=== PATIENT | male | born 1955 | race Caucasian/White ===

== ENCOUNTER 2020-12-04 09:31 | Inpatient (IN) ==
--- NOTE | 2020-11-23 13:31 | PAT Medication Instructions ---
Medication Instructions Date of Service November 23, 2020 Home Medications Medication Instructions Recorded lisinopril 40 mg tablet 40 mg PO BID #180 tab 06/11/20 terazosin 1 mg capsule 1 mg PO HS #90 cap 06/11/20 aspirin 81 mg tablet,delayed release 81 mg PO QAM coenzyme Q10 200 mg capsule 400 mg PO DAILY multivitamin 1 ea PO DAILY potassium 99 mg tablet 198 mg PO HS lisinopril 40 mg tablet 40 mg PO BID terazosin 1 mg capsule 1 mg PO HS Antiva 1 tab PO BID amlodipine 10 mg PO HS cyanocobalamin (vitamin B-12) [Vitamin B-12] 1,000 mcg PO DAILY magnesium 250 mg PO HS sodium hyaluronate [Hyaluronic Acid (sodium)] 20 mg PO QAM ASK your prescriber and surgeon aspirin 81 mg tablet,delayed release 81 mg PO QAM STOP taking 2 weeks before surgery (or as soon as possible if surgery is within 2 weeks) coenzyme Q10 200 mg capsule 400 mg PO DAILY Antiiva 1 tab PO BID sodium hyaluronate [Hyaluronic Acid (sodium)] 20 mg PO QAM DO NOT take the morning of surgery multivitamin 1 ea PO DAILY lisinopril 40 mg tablet 40 mg PO BID cyanocobalamin (vitamin B-12) [Vitamin B-12] 1,000 mcg PO DAILY Take evening before surgery potassium 99 mg tablet 198 mg PO HS lisinopril 40 mg tablet 40 mg PO BID terazosin 1 mg capsule 1 mg PO HS amlodipine 10 mg PO HS magnesium 250 mg PO HS Other Notes If you have any questions please call us at [phone] or [phone] or [phone] or [phone]
--- NOTE | 2020-11-27 08:35 | Anesthesiology Consultation ---
Date of Service November 27, 2020 Assessment & Plan (1) Encounter for pre-operative examination: Chart Review Chart Review: Acceptable Risk for Surgery (pending preop Covid testing ) and Patient seen in Pre Admission Testing Pt's preop CXR showing mild bibasilar interstitial thickening and opacity- slightly improved from previous CT scan- favors resolving infectious process. Pt was treated with abx and steroids 10/20/20 for possible pneumonia- has been feel ing better- mild residual LAURA- discussed with Dr. North- no significant issues noted on PE- pt should be re-evaluated DOS to ensure no concerning exam findings or symptoms. Pt was also instructed to call if symptoms do not continue to improve or get worse. -Pt states if he does not take his Antiiva prostate supplement- he cannot urinate. Discussed with Dr. North- pt able to continue supplement but instructed not to take AM of surgery. Per PAT appt on 11/23/20, pt resides in [facility]. Travels to [facility] for medical appts. Uses PPE. No known Covid positive contacts or Covid related symptoms. Pt denies any known Covid infection in the past 90 days. Pt had preop Covid testing 11/27/20 at PAT visit = will await results. History Surgery Operation Date: 12/04/20 11:40 Proposed Procedures p Laparoscopic Robotic Assisted Radical Retropubic Prostatectomy, Possible Open, Possible Pelvic Lymph Node Dissection, Possible Suprapubic Tube Placement - John Kirby MD Height/Weight Height: 5 ft 4.5 in Weight: 97.8 kg Allergies Allergy/AdvReac Type Severity Reaction Status Date / Time shellfish derived Allergy Mild vomiting Verified 11/23/20 08:50 Penicillins Allergy Hives Verified 11/23/20 08:50 Medications Home Medications Medication Instructions Recorded Confirmed Last Taken aspirin 81 mg tablet,delayed 81 mg PO QAM #90 tab 06/09/19 11/23/20 Unknown release coenzyme Q10 200 mg capsule 400 mg PO DAILY cap 06/09/19 11/23/20 Unknown multivitamin 1 ea PO DAILY 06/09/19 11/23/20 Unknown potassium 99 mg tablet 198 mg PO HS tab 06/09/19 11/23/20 Unknown lisinopril 40 mg tablet 40 mg PO BID #180 tab 06/11/20 11/23/20 Unknown terazosin 1 mg capsule 1 mg PO HS #90 cap 06/11/20 11/23/20 Unknown Antiva 1 tab PO BID 11/23/20 11/23/20 Unknown amlodipine 10 mg PO HS 11/23/20 11/23/20 Unknown cyanocobalamin (vitamin B-12) 1,000 mcg PO DAILY 11/23/20 11/23/20 Unknown [Vitamin B-12] magnesium 250 mg PO HS 11/23/20 11/23/20 Unknown sodium hyaluronate [Hyaluronic 20 mg PO QAM 11/23/20 11/23/20 Unknown Acid (sodium)] Past Medical History Medical History (Updated 11/27/20 @ 12:06 by Marina Sotelo PA-C) Arthritis Benign prostatic hyperplasia (BPH) with urinary urgency Hx of renal calculi passed on own- no current issues Hypertension Obesity Pneumonia Sep 2020. Mild LAURA since that time- symptoms improving- mild residual LAURA. Was treated with Doxy and Prednisone per 10/20/20 PCP telephone note. Prostate cancer 08/2020 Exercise / Class Metabolic Activity III < 4 Walking/Shop/Light housework (no chest pain or SOB with flat surface ambulation ) Past Family History Family History Father Myocardial infarction Uncle Stroke Myocardial infarction Denies family history of Ovarian cancer Prostate cancer Breast cancer Colorectal cancer Past Surgical History Surgical History S/P hemorrhoidectomy S/P LASIK (laser assisted in situ keratomileusis) S/P right knee arthroscopy Past Anesthesia History No Hx of Anesthesia Complications and No Family Hx of Anesthesia Complications History of PONV No Hx of PONV and No Hx of Motion Sickness Social History Smoking Status: Never smoker Do You Dip or Chew Tobacco: No Hx Alcohol Use: No Hx Substance Use: No substance use type: does not use Review of Systems Cough after coming in from cold weather Reflux with tomato sauce- treated with antacids - improved Snoring - no witnessed apnea. No hx of sleep study Patient denies chest pain, shortness of breath at rest, wheezing, palpitations. No hx of seizures, stroke, NH. No hx of blood clots or blood transfusions Physical Exam Vital Signs VITALS (performed by Mary Vaz RN) BP 143/85 P 87 TEMP 98.3 SP02 96% RESP 16 PHYSICAL EXAM PERFORMED BY DR. NORTH Constitutional no acute distress [facility] Mallampati Class: II Right upper incisor broken Neck neck extension not limited Respiratory normal respiratory effort; no respiratory distress Auscultation: lungs clear to auscultation bilaterally; no wheezes Cardiovascular Rate/Rhythm: regular rate and regular rhythm Heart Sounds: no murmur Vessels: no carotid bruit Testing Laboratory Results 11/27/20 09:14 11/27/20 09:14 Urine Color Yellow 11/27/20 09:14 Urine Appearance Clear (Clear) 11/27/20 09:14 Urine pH 5.5 (4.5-7.5) 11/27/20 09:14 Ur Specific [place] 1.020 (1.000-1.030) 11/27/20 09:14 Urine Protein Negative (Negative) 11/27/20 09:14 Urine Glucose (UA) Negative (Negative) 11/27/20 09:14 Urine Ketones Negative (Negative) 11/27/20 09:14 Urine Nitrite Negative (Negative) 11/27/20 09:14 Ur Leukocyte Esterase Negative (Negative) 11/27/20 09:14 Blood Type A Positive 11/27/20 09:14 Antibody Screen NEGATIVE 11/27/20 09:14 Electrocardiogram Date: 11/27/19 Findings: + NSR @ (89 bpm) Left anterior fascicular block. Chest X-Ray Date: 11/27/20 Findings: + cardiomegaly (without evidence of pulmonary edema) Mild bibasilar interstitial thickening and opacity, greater on the left. This has slightly improved since prior CT. This favors a resolving infectious process.
--- NOTE | 2020-11-27 10:00 | XRay Report ---
XR chest Pre-admission PA/Lat CLINICAL HISTORY: Preoperative evaluation. COMPARISON STUDY: No previous studies for comparison. FINDINGS: Lung volumes are at the lower limits of normal. There is no pneumothorax or pleural effusio n. Mild left lower lung opacity and interstitial thickening is noted. Minimal right lower lung inters titial thickening is noted. This was shown on CT of October 18, 2020. No evidence for pulmonary mila a. Mild cardiomegaly is noted. IMPRESSION: 1. Mild bibasilar interstitial thickening and opacity, greater on the left. This has slightly improve d since prior CT. This favors a resolving infectious process. 3. Cardiomegaly without evidence for pulmonary edema. ACT 112: Negative or not required by law. Electronically signed by: Jefe Turcios M.D. 11/27/2020 9:58 AM
[2020-11-27 10:12] LABS: Appearance Urine Clear (Clear); Basophils # (auto) 0.04 K/uL (0-0.2); Basophils % (auto) 0.6 %; Bilirubin Urine Negative (Negative); Blood Urine Negative (Negative); Color Urine Yellow; Eosinophils # (auto) 0.04 K/uL (0-0.5); Eosinophils % (auto) 0.6 %; Glucose Urine UA Negative (Negative); Hemoglobin 15.5 g/dL (14.0-18.0); Immature Granulocytes # (auto) 0.01 K/uL (0.00-0.02); Immature Granulocytes % (auto) 0.2 %; Ketones Urine Negative (Negative); Leukocyte Esterase Urine Negative (Negative); Lymphocytes # (auto) 1.43 K/uL (1.2-3.4); Lymphocytes % (auto) 21.6 %; Mean Corpuscular Hemoglobin 31.8 pg (25-34); Mean Corpuscular Hgb Conc 34.4 g/dL (32-36); Mean Corpuscular Volume 92.4 fL (80-100); Mean Platelet Volume 11.4 fL (7.4-10.4); Monocytes # (auto) 0.59 K/uL (0.11-0.59); Monocytes % (auto) 8.9 %; Neutrophils # (auto) 4.51 K/uL (1.4-6.5); Neutrophils % (auto) 68.1 %; Nitrite Urine Negative (Negative); Platelet Count 231 K/uL (130-400); Protein Urine Negative (Negative); RDW Coefficient of Variation 14.1 % (11.5-14.5); RDW Standard Deviation 47.6 fL (36.4-46.3); Red Blood Count 4.87 M/uL (4.7-6.1); Urobilinogen Urine Negative (Negative); White Blood Count 6.62 K/uL (4.8-10.8); pH Urine 5.5 (4.5-7.5)
[2020-11-27 11:45] LABS: BUN Creatinine Ratio 19.8 (10-20); Calcium 9.9 mg/dl (8.5-10.1); Creatinine Clr Calc Pharmacy 62.1 ml/min; Est GFR (Non-African American) 60.4; Potassium 5.1 mmol/L (3.5-5.1)
--- NOTE | 2020-11-27 14:31 | Electrocardiogram Report ---
Test Reason : Blood Pressure : / mmHG Vent. Rate : 089 BPM Atrial Rate : 089 BPM P-R Int : 136 ms QRS Dur : 096 ms QT Int : 356 ms P-R-T Axes : 054 -60 032 degrees QTc Int : 433 ms Normal sinus rhythm Left anterior fascicular block Abnormal ECG No previous ECGs available Confirmed by Karthik Cid ([id number]) on 11/27/2020 2:31:18 PM Referred By: John Kirby Confirmed By:Karthik Cid
[~2020-12-04 09:31] MED LIST: ANCEF - ALLERGY NOTED TO ORDERED MEDICATION SCH; HEPARIN SOD 5,000 UNIT/0.5 ML VIAL SQ SCH; LIDOCAINE HCL 2% 2 ML VIAL/AMP(20MG/ML) INFIL ONE; LR 15ML/HR IV SCH; MIDAZOLAM HCL 1 MG/ML 2ML VIAL ONE; PROPOFOL IV EMULSION 10 MG/ML 20 ML VIAL IV ONE; fentaNYL citrate 100 MCG/2 ML VIAL ONE
--- NOTE | 2020-12-04 11:23 | History & Physical Bridge Note ---
Date of Service December 04, 2020 History & Physical Bridge Note I have examined the patient, reviewed the History & Physical and in the interval since the performance of the History & Physical I have noted the following changes of clinical significance: no changes noted
--- NOTE | 2020-12-04 11:26 | History & Physical Report ---
Date of Service December 04, 2020 Assessment & Plan (1) Prostate cancer: Gl 8 and 7 prostate ca - here for prostatectomy - risks, benefits, expectations reviewed History of Present Illness Primary Care Provider: Micaela Vargas, DO Here for prostatectomy Allergies Allergy/AdvReac Type Severity Reaction Status Date / Time shellfish derived Allergy Mild vomiting Verified 11/23/20 08:50 Penicillins Allergy Hives Verified 12/04/20 09:59 Home Medications Medication Instructions Recorded Confirmed Type aspirin 81 mg tablet,delayed 81 mg PO QAM #90 tab 06/09/19 12/04/20 History release coenzyme Q10 200 mg capsule 400 mg PO DAILY cap 06/09/19 12/04/20 History multivitamin 1 ea PO DAILY 06/09/19 12/04/20 History potassium 99 mg tablet 198 mg PO HS tab 06/09/19 12/04/20 History lisinopril 40 mg tablet 40 mg PO BID #180 tab 06/11/20 12/04/20 Rx terazosin 1 mg capsule 1 mg PO HS #90 cap 06/11/20 12/04/20 Rx Antiva 1 tab PO BID 11/23/20 12/04/20 History amlodipine 10 mg PO HS 11/23/20 12/04/20 History cyanocobalamin (vitamin B-12) 1,000 mcg PO DAILY 11/23/20 12/04/20 History [Vitamin B-12] magnesium 250 mg PO HS 11/23/20 12/04/20 History sodium hyaluronate [Hyaluronic 20 mg PO QAM 11/23/20 12/04/20 History Acid (sodium)] Past Med/Surg History Medical History Arthritis Benign prostatic hyperplasia (BPH) with urinary urgency Hx of renal calculi passed on own- no current issues Hypertension Obesity Pneumonia Sep 2020. Mild LAURA since that time- symptoms improving- mild residual LAURA. Was treated with Doxy and Prednisone per 10/20/20 PCP telephone note. Prostate cancer 08/2020 Surgical History S/P hemorrhoidectomy S/P LASIK (laser assisted in situ keratomileusis) S/P right knee arthroscopy Family History Father Myocardial infarction Uncle Stroke Myocardial infarction Denies family history of Ovarian cancer Prostate cancer Breast cancer Colorectal cancer Social History Smoking Status: Former smoker Second Hand Exposure: No; Hx Alcohol Use: No Hx Substance Use: No Preferred Language: Yakut Communication Ability: Effective Hearing Ability: Normal Die Operator Required: No Beliefs That Will Affect Care: None marital status: Current Living Situation: Spouse current occupational status: employed current occupation: coal Feels Safe at Home: Yes Childhood Exposure to Second-Hand Smoke: No caffeine: Yes (Tea - 3 per day.) during the past year weight has: remained stable Dental Care, Regularly: No Physical Activity Frequency: Does not Exercise Seatbelt Use: always Assistive Devices: None Physical Exam Constitutional: well developed and well nourished Neck: neck nontender Respiratory: normal respiratory effort; no respiratory distress and does not use accessory muscles Cardiovascular: Rate/Rhythm: regular rate Vessels: radial pulses present Extremities: no edema Gastrointestinal (Abdomen): Inspection/Auscultation: abdomen normal to inspection Percussion/Palpation: abdomen soft; abdomen nontender and no guarding Musculoskeletal: Head/Neck/Chest: normocephalic and head atraumatic Extremities: extremities normal to inspection Skin: no rashes and no lesions Trauma: no evidence of skin trauma Neurologic: awake; not obtunded Speech / Cognition: normal speech Motor/Sensory: no tremor Psychiatric: Orientation: alert and oriented x 3 Genitourinary: no CVA tenderness Lymphatic: no lymphadenopathy Results & Data ([facility]) Vital Signs (Past 12 Hours) Vital Signs Temp Pulse Resp BP Pulse Ox 12/04/20 10:04 37.2 C 77 18 133/87 97
[2020-12-04] MEDS ORDERED: BUPIVACAINE 0.5 % 5 MG/1 ML MPF 30ML VIAL ONE (11:27)
[2020-12-04] MEDS ORDERED: ONDANSETRON INJ 2 MG/ML 2 ML VIAL ONE ×2 (11:29→15:22)
[2020-12-04] MEDS ORDERED: ROCURONIUM BROMIDE 10 MG/ML 5 ML VIAL IV ONE ×3 (11:30→13:44)
[2020-12-04] MEDS ORDERED: CLINDAMYCIN 900 MG in DEXTROSE 5% 50 ML IV ONE (11:37)
[2020-12-04] MEDS ORDERED: ONDANSETRON INJ 2 MG/ML 2 ML VIAL IV PRN ×2 (11:46→17:04)
[2020-12-04] MEDS ORDERED: ePHEDrine sulfate 50 MG/ML AMP IV PRN (11:46)
[2020-12-04] MEDS ORDERED: METOCLOPRAMIDE HCL INJ 5 MG/ML 2 ML VIAL IV PRN (11:46)
[2020-12-04] MEDS ORDERED: HYDROmorphone INJ 2 MG/ML SYR/VIAL IV PRN (11:46)
[2020-12-04] MEDS ORDERED: PROMETHAZINE HCL 12.5 MG in SODIUM CHLORIDE 0.9% 50 ML IV PRN (11:46)
[2020-12-04] MEDS ORDERED: ATROPINE SULFATE 0.1 MG/ML 10ML SYR IV PRN (11:46)
[2020-12-04] MEDS ORDERED: HYDROmorphone INJ 2 MG/ML SYR/VIAL ONE (12:08)
[2020-12-04] MEDS ORDERED: NEOSTIGMINE METHYLSULFATE 5 MG/5 ML SYR ONE (13:45)
[2020-12-04] MEDS ORDERED: GLYCOPYRROLATE 0.2 MG/ML VIAL ONE (13:45)
[2020-12-04] MEDS ORDERED: ePHEDrine sulfate 50 MG/ML AMP ONE (14:11)
[2020-12-04] MEDS ORDERED: fentaNYL citrate 100 MCG/2 ML VIAL ONE (14:23)
[2020-12-04] MEDS ORDERED: FLOSEAL HEMOSTATIC MATRIX 10ML TOP ONE (15:05)
--- NOTE | 2020-12-04 15:44 | Operative Report ---
PG Post Operative Report Pre & Post Diagnosis Operation Date: 12/04/20 10:50 Pre-Op Diagnosis: Prostate Cancer Post-Op Diagnosis: Prostate Cancer I identified the patient and participated in the time-out.: Yes Procedure Operation Date: 12/04/20 10:50 Actual Procedures p Robotic Assisted Laparoscopic Radical Retropubic Prostatectomy, Pelvic Lymph Node Dissection(Not Applicable) - John Kirby MD Surgeon Diego Kirby MD Production Statistical Clerk Brianda Isabel Estimated Blood Loss 100 Findings Consistent with Post-Op Diagnosis Specimens 1. Periprostatic fat 2. Left pelvic lymph nodes 3. Right pelvic lymph nodes 4. Prostate and seminal vesicle Description of Procedure The patient was identified in the preoperative holding area, appropriate informed consents were reviewed and completed, and he was transported to the operating suite. Subcutaneous heparin was administered in the pre-operative holding area. Upon arrival in the operating suite, he received appropriate antibiotics and general anesthesia. He was positioned in dorsal lithotomy, a B&O suppository was inserted after digital rectal exam, and he was prepped and draped in standard fashion. A Jasso catheter was inserted in the sterile field. A Veress needle was passed per umbilicus with uniform insufflation of the abdomen to 15mmHg. He was placed in steep Trendelenburg position. A periumbilical incision was then made to accommodate a 12mm Visiport with 10mm 0degree laparoscope. Inspection of the abdomen was carried out, and there was no evidence of traumatic entry or injury secondary to the Veress needle. After confirming a clear anterior abdominal wall, ports were subsequently placed in standard robotic prostatectomy fashion without incident. To begin the robotic portion of the case, the left lateral aspect of the sigmoid was mobilized off of the left pelvic side wall to allow the pouch of David to be appropriately visualized. I then made an incision in the pouch of David, overlying the seminal vesicles. Both SVs as well as the ampullae of the vasa were entirely dissected, with the vasa transected 3cm from the prostate. Space was limited in this area, but the dissection was completed without significant difficulty. The medial umbilical ligaments were then controlled with bipolar electrocautery just inferior to the umbilicus. Following cauterization, they were divided utilizing monopolar cautery. A peritoneal incision was carried from this location to the medial aspect of the internal inguinal rings bilaterally with care to avoid opening through the ring. This incision was concluded when the vas deferens was reached. Dissection of the bladder and prostate off of the posterior aspect of the pubic arch was completed allowing full visualization of the prostate. The fat overlying the prostate was removed en bloc and passed off the table as a specimen labeled "periprostatic fat". The endopelvic fascia was cleared during this portion of the procedure, and subsequently opened - first on the right and then the left. The incision through the endopelvic fascia began near the prostate-bladder junction and was carried to the apex with extreme care to preserve all lateral levator musculature as well as the periurethral musculature and sphincter complex. I additionally preserved the puboprostatic ligaments. I then controlled the DVC with a 3-0 V-lock suture in overlapping/figure of 8 fashion. The lymph node dissection was then conducted. External iliac vessels were identified on the pelvic side wall. The packet of fat and lymphatic tissue that resides just under the iliac vein was elevated and off of the vein with a split and roll technique. The packet was dissected laterally to the circumflex vein and distally to the obturator nerve which was preserved. The proximal aspect of the packet was carried towards the bifurcation of the iliac vessels. A combination of monopolar and bipolar cautery were used to assist with control. After completing the dissection on both sides, the packets were collected and passed off of the table as specimens labeled "pelvic lymph nodes". My attention then returned to the prostate, with identification of the bladder neck aided by gentle traction on the Jasso catheter and lateral to medial pressure at the presumed level of the bladder neck with the robotic instruments. The jasso was noted to be quite displaced to the patient's left hand side, and the general shape of the prostate and space limitations led to an expectation of a large intravesical median lobe. An anterior cystotomy was made, confirming the suspicion of an intravesical lobe. It seemed to start from the left lateral lobe and protrude into the bladder. Overall, I would estimate the median lobe to accound for greater than 50% of the total prostate size. The Jasso balloon deflated and the catheter guided through the incision to allow anterior retraction. I attempted to preserve maximal bladder neck musculature as I circumferentially dissected around the bladder neck. Extreme care was taken to hug the intravesical lobe and avoid encroachment upon the UOs. The UO's were visualized and although close to our area of dissection, they were easily preserved. After incision through the posterior aspect of the mucosa, the dissection was carried through detrusor muscle until the bilateral ampullae of the vasa were identified. The previously dissected vasa and SVs were brought through the incision and used to elevated the prostate anteriorly. Given the size of the median lobe, is very difficult to elevate the prostate utilizing the vasa and SV's. Instead I incised the lateral connections between the bladder and the prostate using Weck clips and cold incision. This dropped the bladder neck somewhat and allowed me to access the posterior plane. Fortunately we had dissected the posterior plane during the initial SV dissection, and little was required to continue this to the apex of the prostate. An incision in the lateral prostatic fascia was then made bilaterally to facilitate control of the vascular pedicles and a very conservative preservation of the nerve bundles.. Vasculature running along the posterior/lateral aspect of the prostate was preserved as well as the tissue containing the nerves. The pedicles were then controlled with utilization of the SureSeal device. The apical attachments of the prostate were remaining at that stage. The DVC was divided after control with bipolar cautery over the prostate. Continuous inspection from anterior and lateral views allowed me to closely follow the apical contour of the prostate and maximally preserve urethral length and tissue. The prostate was entirely freed at that point, and collected in an EndoCatch bag before being moved out of the field of vision. Hemostasis was confirmed and anastomosis of the bladder and urethra was completed utilizing a double armed V-Lock stitch. A new Jasso catheter was inserted and the anastomosis tested with irrigation. There was no evidence of leak. A iza style stitch was placed bilaterally to functionally marsupialize the area of the lymph node dissection. The robot was undocked, the specimen extracted through expansion of the louisa- umbilical camera port. The fascia was closed with a running 0- vicryl. The right speech language pathology assistant port was closed in two layers - with a figure of 8 0-Vicryl to reapproximate the fascia followed by 4-0 Monocryl to close the skin. Monocryl was used to close all other skin incisions. All wounds were dressed with Dermabond. The case was concluded and the patient taken to the PACU in stable condition. Brianda Isabel was present and scrubbed throughout helping from incision to closure. I attest to the content of the Intraoperative Record and any orders documented therein. Any exceptions are noted below.
[2020-12-04] MEDS: fentaNYL citrate 100 MCG/2 ML VIAL IV PRN ×2 (16:03→16:08)
[2020-12-04 16:18] LABS: Basophils # (auto) 0.02 K/uL (0-0.2); Basophils % (auto) 0.2 %; Eosinophils # (auto) 0.01 K/uL (0-0.5); Eosinophils % (auto) 0.1 %; Hematocrit (blood only) 41.5 % (42-52); Immature Granulocytes # (auto) 0.02 K/uL (0.00-0.02); Immature Granulocytes % (auto) 0.2 %; Lymphocytes % (auto) 8.8 %; Mean Corpuscular Hemoglobin 31.5 pg (25-34); Mean Corpuscular Volume 93.5 fL (80-100); Mean Platelet Volume 11.2 fL (7.4-10.4); Monocytes # (auto) 0.69 K/uL (0.11-0.59); Monocytes % (auto) 6.7 %; Platelet Count 175 K/uL (130-400); RDW Coefficient of Variation 13.9 % (11.5-14.5); RDW Standard Deviation 47.4 fL (36.4-46.3); Red Blood Count 4.44 M/uL (4.7-6.1); White Blood Count 10.24 K/uL (4.8-10.8)
[2020-12-04 16:23] LABS: Mean Corpuscular Hgb Conc 33.7 g/dL (32-36)
--- NOTE | 2020-12-04 16:27 | Anesthesiology Progress Note ---
Date of Service December 04, 2020 Anesthesia Post Procedure Vital Signs Vital Signs: Temp Pulse Pulse Resp BP BP Pulse Ox 12/04/20 16:15 37.0 C 88 17 115/76 95 12/04/20 16:05 89 14 124/79 94 12/04/20 15:55 90 16 139/76 97 12/04/20 15:45 92 H 16 127/79 96 12/04/20 15:38 36.7 C 98 H 12 98/64 L 98 12/04/20 10:04 37.2 C 77 18 133/87 97 Pain Intensity Abdomen: Pain Intensity: 4 Transfer of Care Handoff Completed per policy Notes Mental Status: alert / awake / arousable and participated in evaluation Patient Amnestic to Procedure: Yes Nausea / Vomiting: adequately controlled Pain: adequately controlled Airway Patency, RR, SpO2: stable & adequate BP & HR: stable & adequate Hydration State: stable & adequate Anesthetic Complications: no major complications apparent and Pt Satisfied with anesthetic care
[2020-12-04 16:42] LABS: BUN Creatinine Ratio 15.8 (10-20); Calcium 8.8 mg/dl (8.5-10.1); Est GFR (African American) 52.9; Est GFR (Non-African American) 45.6; Potassium 5.1 mmol/L (3.5-5.1)
[2020-12-04] MEDS: LACTATED RINGER'S 1,000 ML IV SCH (17:00)
[2020-12-04] MEDS ORDERED: ACETAMINOPHEN 325 MG TAB PO PRN (17:04)
[2020-12-04] MEDS ORDERED: oxyCODONE HCL IR 5 MG TAB (IMMEDIATE RELEASE) PO PRN (17:04)
[2020-12-04] MEDS ORDERED: MoRPHine SULFATE 4 MG/ML 1 ML CARP\\VIAL IV PRN (17:04)
[2020-12-04] MEDS ORDERED: MoRPHine SULFATE 2 MG/ML CARP IV PRN (17:04)
[2020-12-04] MEDS: HEPARIN SOD 5,000 UNIT/0.5 ML VIAL SQ SCH (20:41)
[2020-12-04] MEDS: lisinopril 40 MG TAB PO SCH (20:41)
[2020-12-04] MEDS: CLINDAMYCIN 600 MG in DEXTROSE 5% 50 ML IV SCH (20:42)
[2020-12-04] MEDS ORDERED: [UNRECOGNIZED DRUG - OTHER] PO SCH (21:00)
[2020-12-04] MEDS ORDERED: TERAZOSIN HCL 1 MG CAP PO SCH (21:00)
[2020-12-04] MEDS ORDERED: amLODIPine BESYLATE 5 MG TAB PO SCH (21:00)
[2020-12-05] MEDS: CLINDAMYCIN 600 MG in DEXTROSE 5% 50 ML IV SCH ×2 (04:13→13:08)
[2020-12-05] MEDS: LACTATED RINGER'S 1,000 ML IV SCH (04:13)
[2020-12-05] MEDS: oxyCODONE HCL IR 5 MG TAB (IMMEDIATE RELEASE) PO PRN ×2 (04:15→14:52)
[2020-12-05 06:31] LABS: Basophils # (auto) 0.02 K/uL (0-0.2); Basophils % (auto) 0.2 %; Eosinophils # (auto) 0.04 K/uL (0-0.5); Eosinophils % (auto) 0.5 %; Hematocrit (blood only) 38.9 % (42-52); Immature Granulocytes # (auto) 0.01 K/uL (0.00-0.02); Immature Granulocytes % (auto) 0.1 %; Lymphocytes # (auto) 1.16 K/uL (1.2-3.4); Lymphocytes % (auto) 13.4 %; Mean Corpuscular Hemoglobin 31.6 pg (25-34); Mean Corpuscular Hgb Conc 33.4 g/dL (32-36); Mean Corpuscular Volume 94.6 fL (80-100); Mean Platelet Volume 11.3 fL (7.4-10.4); Monocytes # (auto) 0.85 K/uL (0.11-0.59); Monocytes % (auto) 9.8 %; Neutrophils # (auto) 6.58 K/uL (1.4-6.5); Platelet Count 164 K/uL (130-400); RDW Coefficient of Variation 14.3 % (11.5-14.5); RDW Standard Deviation 49.2 fL (36.4-46.3); Red Blood Count 4.11 M/uL (4.7-6.1); White Blood Count 8.66 K/uL (4.8-10.8)
[2020-12-05 07:05] LABS: BUN Creatinine Ratio 17.5 (10-20); Calcium 8.3 mg/dl (8.5-10.1); Creatinine Clr Calc Pharmacy 58.1 ml/min; Est GFR (African American) 66.7; Est GFR (Non-African American) 57.5; Potassium 4.8 mmol/L (3.5-5.1)
[2020-12-05] MEDS: HEPARIN SOD 5,000 UNIT/0.5 ML VIAL SQ SCH (08:09)
[2020-12-05] MEDS: lisinopril 40 MG TAB PO SCH (08:10)
[2020-12-05] MEDS ORDERED: NON-FORMULARY MEDICATION (Coenzyme Q10 200 mg capsule) PO SCH (09:00)
[2020-12-05] MEDS ORDERED: MULTIVITAMIN TAB PO SCH (09:00)
[2020-12-05] MEDS ORDERED: CYANOCOBALAMIN 500 MCG TABLET (VITAMIN B-12) PO SCH (09:00)
[2020-12-05] MEDS ORDERED: ASPIRIN 81 MG ECTAB PO SCH (09:00)
--- NOTE | 2020-12-05 09:44 | Urology Progress Note ---
Date of Service December 05, 2020 Assessment & Plan (1) Prostate cancer: Postop day 1 status post robotic prostatectomy Recovering appropriately Continue ambulation Advance diet Likely discharge home later this afternoon Admission and Anticipated Discharge Date Admission Date: December 04, 2020 Subjective Uneventful night Reports that he has minimal discomfort He has been ambulatory He is hungry and asking for food His urine has cleared appropriately Physical Exam Physical Exam: Incisions appropriate, clear urine in the tubing Results & Data ([facility]) Vital Signs (Past 12 Hours) Vital Signs Temp Pulse Resp BP Pulse Ox 12/05/20 08:06 37.3 C 12/05/20 07:45 37.9 C H 83 18 117/65 93 PG Care Time/CCT Total # of Minutes Spent Total Time Spent with Patient: Total time spent is greater than 50% in coordination of care (as documented) at patient's floor/unit and/or counseling patient: Coding Level of Care Code 81686 Subseq Hosp Care Lvl 2 Diagnoses Prostate cancer C61
--- NOTE | 2020-12-06 12:49 | Discharge Summary ---
Date of Service December 06, 2020 Admission HPI Per Admitting Provider Here for prostatectomy Principal Diagnosis prostate cancer Discharge Data Allergies Allergy/AdvReac Type Severity Reaction Status Date / Time shellfish derived Allergy Mild vomiting Verified 11/23/20 08:50 Penicillins Allergy Hives Verified 12/04/20 09:59 Procedures Performed Operation Date: 12/04/20 10:50 Actual Procedures p Robotic Assisted Laparoscopic Radical Retropubic Prostatectomy, Pelvic Lymph Node Dissection(Not Applicable) - John Kirby MD Hospital Course (1) Prostate cancer: admitted for prostatectomy - details as dictated in the operative report - progressed well overnight - ambulated - tolerated a diet - was d/c'ed home in stable condition on POD#1 Total Time Total Time Spent Total Time Spent (In Minutes): 15 Total Time Includes: Examination of the Patient, Discharge Planning, Medication Reconciliation, Communication With Other Providers and Other Discharge Plan Discharge Items Patient Disposition: Home - Self-Care Reason For Visit: Prostate Cancer Discharge Diagnosis: Prostate Cancer Activity: Per Instructions section Lifting: No more than 10 pounds Bathing Comment: OK to shower 1 day after discharge. No tub baths or soaks. Sexual Activity: Wait until after follow-up appointment Exercise/Sports: Wait until after follow-up appointment Driving/Machine Use: Do not drive while taking prescription pain medication. Non-emergency contact: Surgeon and Urologist Call non-emergency contact if: your pain is not controlled, you have a fever, your temperature is above 101, your wound has increased redness, your wound has increased drainage and your wound pain has increased Follow-up/Referrals: John Kirby MD [Physician] - 12/17/20 11:10 am Micaela Vargas DO [Primary Care Provider] - Urology,Nurse [FAKE FOR SCHEDULES] - 12/12/20 11:00 am (Voiding trial) Diet: Regular Addtl Attending Provider Instructions: Please take all medications as prescribed and keep all follow-ups as scheduled. Please call our office at [phone] with any questions, concerns or need to reschedule appointments for any reason. We are happy to assist you We have sent an antibiotic to your pharmacy of choice. Please begin antibiotic as prescribed the day BEFORE your scheduled voiding trial at [facility]. Please continue antibiotic every 12 hours through the day AFTER your voiding trial. Activity: We recommend having someone with you for the first few days after surgery to help care for you. For the first 2 weeks after surgery, we would like you to get up and walk around your house. However, we recommend limit physical activity that would increase your heart rate. This will allow your body to rest and heal. Take naps if you feel tired. Don't lift anything heavier than 10 pounds, mow the law or ride a bicycle until your follow-up appointment. Please avoid long car rides. Home Care: Unless directed otherwise, drink 6 to 8 glasses of water a day (enough to keep your urine light colored). This will also help keep a healthy flow of urine. We recommend using a stool softener for the first two weeks to avoid constipation. Garcia Catheter or Suprapubic Catheter care: Keep the catheter well secured with either a leg back or leg strap with large bag. Empty your bag when it's about half full. You may notice some blood in the bag. This is normal after surgery and while the catheter is in place. Use mild soap (such as Dove or Dial) and water to wash the catheter and the head of your penis daily, or more frequently if needed. Return to your normal diet, we encourage good protein intake to promote healing. You may shower as normal. Please avoid tub baths or soaking until catheter removed and incisions well healed. Wearing sweat pants while you have the catheter is recommended, they will be more comfortable. Follow-up Your follow up appointments for having your catheter removed, and follow up with your physician should already be scheduled. If you have any questions regarding this, please contact our office. Your final pathology report will be discussed at your physician follow-up appointment. Call [facility] at [phone] right away if you have any of the following: Chest pain or trouble breathing (call [phone] or go to the hospital) Fever of 101F or higher, uncontrolled vomiting Heavy bleeding, clots, or bright red blood from the catheter Catheter that falls out or stops draining Foul-smelling discharge from your catheter Redness, swelling, warmth, or increased pain at your incision site Drainage, pus, or bleeding from your incision Pending Studies at Discharge: Yes Stand-Alone Forms: My hint, Smoking Cessation Medications and DC Order Prescriptions: New oxycodone-acetaminophen [Percocet] 5-325 mg tablet 1 tab PO Q8H PRN (Reason: pain) Qty: 14 RF: 0 docusate sodium [Colace] 100 mg capsule 100 mg PO BID Qty: 60 RF: 0 Continued lisinopril 40 mg tablet 40 mg PO BID Qty: 180 RF: 3 terazosin 1 mg capsule 1 mg PO HS Qty: 90 RF: 3 aspirin 81 mg tablet,delayed release (DR/EC) 81 mg PO QAM Qty: 90 RF: 0 coenzyme Q10 200 mg capsule 400 mg PO DAILY RF: 0 multivitamin 1 ea PO DAILY RF: 0 potassium 99 mg tablet 198 mg PO HS RF: 0 cyanocobalamin (vitamin B-12) [Vitamin B-12] 1,000 mcg Tablet 1,000 mcg PO DAILY RF: 0 magnesium 250 mg Tablet 250 mg PO HS RF: 0 sodium hyaluronate 20 mg Capsule 20 mg PO QAM RF: 0 amlodipine 10 mg tablet 10 mg PO HS RF: 0 No Action sulfamethoxazole-trimethoprim [Bactrim DS] 800-160 mg tablet 1 tab PO BID 3 Days Qty: 6 RF: 0 Discharge Orders: Discharge Order (Routine); Ordered 12/05/20 Ordered By: Brianda Tucker/Other Patient Handouts: Emptying and Cleaning Your ..., Indwelling Urinary Catheter Dc, Discharge Instructions Caring for ..., ED Garcia Catheter, Care Admission Data Admit Date/Time: 12/04/20 15:54 Attending Provider: John Kirby Admit Provider: John Kirby Primary Care Provider: Micaela Vargas Other Interventions: Discharge Summary Assessment (RN) Last Done: 12/05/20 14:54 Coding Level of Care Code D/C Day Management <30 mins Diagnoses Prostate cancer C61
== END 2020-12-05 16:02 | disposition home or self-care (01) | DRG 708 ==
LOC: ASU 09:31 → 3N 15:54